=== PATIENT | male | born 1950 | race Caucasian/White ===

== ENCOUNTER 2023-01-17 19:15 | Emergency (ER) | payer MEDICARE, OTHER ==
[~2023-01-17] VITALS: Ht 177.8 cm; Wt 125.0 kg
[2023-01-17] MEDS ORDERED: BUPIVACAINE 0.5% 30 ML (SENSORCAINE) VIAL ONE (19:44)
[2023-01-17] MEDS ORDERED: LIDOCAINE 1% INJ 10 ML VIAL INJ ONE (19:45)
[2023-01-17] MEDS ORDERED: TETANUS,DIPTH,PERTUSS P/F (BOOSTRIX) 0.5 ML VIAL IM ONE (19:45)
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
--- NOTE | 2023-01-17 20:00 | Diagnostic Imaging Report ---
INDICATION: Injury. FINDINGS: There are mildly comminuted fractures of the distal phalanx of the thumb at its terminal tuft with overlying soft tissue irregularities. There is no retained opaque foreign body. There are some faint bony fragments displaced into the soft tissues. The joint space intact and normal, aside from arthritis. There are postsurgical changes to the 1st and 2nd metatarsals. No other injury identified. IMPRESSION: Distal phalanx terminal tuft fractures and soft tissue injury at the thumb. Arthritis and postoperative changes noted. No other injury identified. Dictated by: Dictated on workstation # [id number]
[2023-01-17] MEDS ORDERED: CEPH500T PO (20:41)
[2023-01-17] MEDS ORDERED: ACET-11 PO (20:43)
[2023-01-17] MEDS ORDERED: RX-CEPHALEXIN (KEFLEX) 250 MG CAP PPK#4 PO STA (20:45)
[2023-01-17 20:56] VITALS: BP 144/96
== END 2023-01-17 20:56 | disposition home or self-care (01) ==
LOC: ER 19:18
DX: S61.012A Laceration without foreign body of left thumb without damage to nail, initial encounter (principal); Z23 Encounter for immunization; W26.8XXA Contact with other sharp object(s), not elsewhere classified, initial encounter
CPT/HCPCS: 12001; 64450; 73140; 90715